=== PATIENT | male | born 1955 | race Caucasian/White ===

== ENCOUNTER → 2018-12-29 | Day surgery (SDC) | payer MEDICARE ==
[~2018-12-29] MED LIST: ALPRAZOLAM2 MG PO; ATORVASTATIN CA40 MG PO; CEFTRIAXONE SOD 1 GM/NS 50 ML 50 ML IV ONE; CYMBALTA60 MG PO; FENTANYL CITRATE/PF 100MCG/2 ML INJ ONE; FINASTERIDE5 MG PO; FUROSEMIDE40 MG PO; GABAPENTIN300 MG PO; HUMULIN 70100 UNIT/1 SC; IBUPROFEN400 MG PO; IPRAT-ALBUT 0.5-3 ML INH; ISOSORBIDE MONO30 MG PO; LACTULOSE10 GM/15 M PO; LEVAQUIN500 MG PO; LIDOCAINE HCL 2% LOCAL INJ 5 ML SDV VIAL INJ ONE; LIDOCAINE JELLY 2% 10ML URO-JET ONE; LISINOPRIL40 MG PO; METOLAZONE10 MG PO; METOPROLOL SUCC50 MG PO; MIDAZOLAM HCL 2 MG/2 ML VIAL ONE; NORCO 10-325 T1 EACH PO; NYAMYC15 GM TOP; PLAVIX75 MG PO; PROPOFOL IV EMULSION 10 MG/ML 20 ML VIAL ONE; TYLENOL # 31 EA PO; ULTRAM 50MG50 MG PO; XARELTO10 MG PO
--- OUTSIDE RECORDS SUMMARY | 2018-12-29 09:09 | XMS REPORT | Clinical Summary ---
Author Author [facility] Organization [facility] Address Unknown Phone Unavailable Support Name Relationship Address Phone JULIANNA MELTON ECON [address] [place] [address] Care Team Providers Care Humanities Coordinator Name Role Phone PCP Unavailable Allergies Comments Active Allergy Reactions Severity Noted Date No Known Allergies 03/06/2008 Medications End Date Status Medication Sig Dispensed Refills Start Date Active PROPOXYPHENE take 1 tablet 50 1 N-ACETAMINOPHEN 100 by oral route 9 MG-650 MG TABIndications: every 4-6 Back pain, Knee pain hours as needed for pain Active ASCENSIA CONTOUR TEST check twice 100 3 STRIPSIndications: Type daily 0 II or unspecified type diabetes mellitus without mention of complication, not stated as uncontrolled Active CIALIS 20 MG take 1 tablet 5 3 TABIndications: Type II (20 mg) by 0 or unspecified type oral route diabetes mellitus without once daily mention of complication, not stated as uncontrolled, HTN (hypertension) Active ALBUTEROL 90 inhale 1 puff 2 6 MCG/ACTUATION AEROSOL by inhalation 0 INHALERIndications: HTN route every (hypertension) 4-6 hours as needed Active HYDROCODONE-ACETAMINOPHEN Take by 20 Tab 0 (VICODIN ES) 7.5-750 mg mouth every 8 1 tabletIndications: Back hours as pain, Type II or needed for unspecified type diabetes Pain. mellitus without mention Patricio of complication, not Adalberto stated as uncontrolled [address], [place] [address] Active tolterodine (DETROL) 2 mg Take 1 Tab by 60 Tab 2 tabletIndications: mouth 2 times 1 Incontinence without daily. sensory awareness Patricio Glover [address], [place] [address] Active glucose blood test strips 100 Each. 100 2 Box 2 (CONTROL TEST) each month [address]: Type II [address] Curry or unspecified type [place] diabetes mellitus without [address] mention of complication, Road not stated as [place], [place] [address] Active LANCETSIndications: Type 2 Boxes. Use 2 Box 3 II or unspecified type as Directed [address] Curry mention of complication, [place] not stated as [address] [place] [address] Active enalapril (VASOTEC) 5 mg Take 1 Tab by 180 Tab 4 tabletIndications: HTN mouth 2 times 1 (hypertension), daily. Medication refill Active metFORMIN (GLUCOPHAGE) Take 1 Tab by 270 Tab 4 850 mg tabletIndications: mouth 3 times 1 Type II or unspecified daily. type diabetes mellitus Patricio without mention of [place] complication, not stated [address] uncontrolled, Road Medication refill [place] [address] Active traMADol (ULTRAM) 50 mg Take 1 Tab by 50 Tab 3 tabletIndications: Back mouth every 8 1 pain hours as needed for Pain. (1 tablet=50 mg) No additional refills until patient seen in office by new PCP. 1-2 po every 8 - 12 hours prn pain. Active insulin NPH - regular, Inject 6 Vial 6 HUMAN, (NOVOLIN 70/30) subcutaneousl 2 100 unit/mL (70-30) y see admin injectionIndications: instructions. Type II or unspecified Inject 90 type diabetes mellitus units SQ in without mention of am and 40 complication, not stated units in as uncontrolled, afternoon Medication refill then 90 units at bedtime Active metoprolol tartrate Take 1 tablet 180 tablet 4 (LOPRESSOR) 25 mg by mouth 2 2 tabletIndications: times daily. Medication refill Active amitriptyline (ELAVIL) Take 1 tablet 90 tablet 3 100 mg tabletIndications: by mouth at 2 Back pain, Insomnia, bedtime. unspecified, Medication refill Active furosemide (LASIX) 40 mg Take 2 120 tablet 6 tabletIndications: HTN tablets by 2 (hypertension), mouth 2 times Medication refill daily. Active Diaper,Brief,Infant-Aamir, by 300 Each 6 Disp (RA ULTRAFITS DIAPER Misc.(Non-Vincent 2 SIZE 3/MED) g; Combo MiscIndications: Route) route. Medication refill, Pull up, Incontinence without issue 300 per sensory awareness month .rarx Active HYDROCODONE-ACETAMINOPHEN Take 1 tablet 30 tablet 0 (NORCO) 7.5-325 mg per by mouth 2 tabletIndications: Back daily as pain, Knee pain needed for Pain. Active DICLOFENAC SODIUM 75 mg Take 1 tablet 60 tablet 2 delayed release by mouth 2 2 tabletIndications: times daily. Medication refill, Osteoarthritis of left knee Active famotidine (PEPCID) 20 mg Take 1 tablet 180 tablet 4 tabletIndications: by mouth 2 2 Dyspepsia and other times daily. specified disorders of Dr. Curry function of stomach, Type Adalberto II or unspecified type [address] [place] [address] mention of complication, [place], not stated as [place] [address] uncontrolled, Medication [phone] refill [phone] Active oxybutynin (DITROPAN XL) Take 1 tablet 90 tablet 3 10 mg extended release by mouth 2 tabletIndications: daily. Medication refill Active potassium chloride Take 1 tablet 30 tablet 4 (KLOR-CON) 20 mEq by mouth 2 extended release daily. tabletIndications: HTN (hypertension), Medication refill Active simvastatin (ZOCOR) 20 mg Take 1 tablet 90 tablet 3 tabletIndications: Pure by mouth at 3 hypercholesterolemia, bedtime. Medication refill Patricio Glover [address] [place] [address] Active simvastatin (ZOCOR) 20 mg TAKE ONE 90 tablet 3 tabletIndications: TABLET BY 3 Medication refill MOUTH EVERY NIGHT AT BEDTIME Active PHARM MONO INS SYR by 100 Syringe 3 1CC/29G 1 mL 29 Misc.(Non-Vincent 4 SyrgIndications: Type II g; Combo or unspecified type Route) route diabetes mellitus without As directed. mention of complication, not stated as uncontrolled, Medication refill Active Problems Problem Noted Date Follow-up examination following completed treatment with high-risk 10/03/2010 medications, not elsewhere classified Colon cancer screening 10/03/2010 Immunization, influenza 10/03/2010 Dyspepsia and other specified disorders of function of stomach 10/03/2010 Wound 10/03/2010 Obesity, unspecified 10/03/2010 OM (otitis media) 04/14/2010 Incontinence without sensory awareness 03/06/2008 Knee pain 01/04/2008 COPD 07/05/2007 HTN (hypertension) 08/16/2006 Type II or unspecified type diabetes mellitus without mention of 08/16/2006 complication, not stated as uncontrolled Back pain 08/16/2006 Pure hypercholesterolemia 08/16/2006 COPD (chronic obstructive pulmonary disease) Encounters Care Team Description Date Type Specialty Davide Mendez MD Takenaka, Katrin Y, MD Chronic pain of left upper extremity (Primary Dx); Chest pain on breathing 12/05/2018 Emergency Emergency Medicine - 12/06/2018 12/05/2018 Travel after 12/28/2017 Immunizations Name Dates Previously Given Next Due Influenza A (H1N1) Vac 10/29/2009 Injection Influenza Vaccine 10/03/2010, 09/17/2009, 09/22/2007, 09/02/2006 Pneumoccoccal 09/22/2007 Family History Medical History Relation Name Comments Heart Father Heart Mother Diabetes Sister Relation Name Status Comments Father Mother Sister Social History Date Tobacco Use Types Packs/Day Years Used Former Smoker Comments: quit 1 yr ago. uses chewing tobacco. Alcohol Use Drinks/Week oz/Week Comments No Sex Assigned at Date Recorded Not on file Industry Job Start Date Occupation Not on file Not on file Not on file Travel End Travel History Travel Start No recent travel history available. Last Filed Vital Signs Time Taken Vital Sign Reading 12/06/2018 9:00 AM GUIDANCE DIRECTOR Blood Pressure 141/78 12/06/2018 9:00 AM GUIDANCE DIRECTOR Pulse 91 12/06/2018 9:00 AM GUIDANCE DIRECTOR Temperature 36.9 C (98.4 F) 12/06/2018 9:00 AM GUIDANCE DIRECTOR Respiratory Rate 18 12/06/2018 9:00 AM GUIDANCE DIRECTOR Oxygen Saturation 97% - Inhaled Oxygen - Concentration 12/06/2018 12:00 AM GUIDANCE DIRECTOR Weight 174.2 kg (384 lb) - Height - 03/17/2012 1:32 PM CDT Body Mass Index 50.66 Plan of Treatment Health Maintenance Due Date Last Done Comments DM Foot Exam (Yearly) 02/16/1974 DM Retinal Exam (Yearly) 02/16/1974 Colorectal Cancer Scrn 09/30/2008 09/30/2007, 09/29/2007, 09/28/2007 Annual (FIT/FOBT) Age 50 to 75 DM HGBA1C (Yearly) 03/02/2013 03/02/2012, 07/20/2011, 04/18/2010, Additional history exists IMM Influenza Seasonal 08/29/2018Aug to January (>/=19 yrs) Procedures Comments Procedure Name Priority Date/Time Associated Diagnosis CONSULT CLINICAL CASE STAT 12/06/2018 MANAGEMENT (RN/SW) 8:26 AM GUIDANCE DIRECTOR DUPLEX DOPPLER LOWER STAT 12/06/2018 EXTREMITY VENOUS, 6:10 AM GUIDANCE DIRECTOR BILATERAL 12 LEAD EKG Routine 12/06/2018 1:48 AM GUIDANCE DIRECTOR TROPONIN I POC Routine 12/06/2018 1:[address] CHEST PE PROTOCOL STAT 12/06/2018 Chest pain on breathing 12:37 AM GUIDANCE DIRECTOR VBG POC Routine 12/05/2018 8:53 PM GUIDANCE DIRECTOR BMP POC Routine 12/05/2018 8:52 PM GUIDANCE DIRECTOR TROPONIN I POC Routine 12/05/2018 8:49 PM GUIDANCE DIRECTOR B NATRIURETIC PEPT STAT 12/05/2018 8:30 PM GUIDANCE DIRECTOR CBC/DIFF STAT 12/05/2018 8:30 PM GUIDANCE DIRECTOR XRAY CHEST 2 VIEWS STAT 12/05/2018 Chest pain on breathing 8:29 PM GUIDANCE DIRECTOR 12 LEAD EKG Routine 12/05/2018 6:34 PM GUIDANCE DIRECTOR after 12/28/2017 Results * DUPLEX DOPPLER LOWER EXTREMITY VENOUS, BILATERAL (12/06/2018 6:10 AM GUIDANCE DIRECTOR) Impressions Performed At IMPRESSION: [facility] No deep venous thrombosis (DVT) in the visualized portions of bilateral lower extremities. This [facility] radiology report is a preliminary resident dictation until finalized by an attending.Changes to this preliminary report may occur in an additional preliminary or finalized version. Resident: Nyla Esteban have reviewed the study and agree with the findings in this report. Signed By: Maximiliano Curran MD, 12/06/2018 6:22 AM Narrative Performed At EXAM: US BILATERAL LOWER EXTREMITY VENOUS DOPPLER SMS DATE: 12/06/2018 6:11 AM INDICATION: swelling and pain. ADDITIONAL INFORMATION: None. COMPARISON: None. TECHNIQUE: Multiplanar grayscale, color Doppler and spectral Doppler ultrasound of the bilateral lower extremity veins. FINDINGS: Right Thigh Veins: Common Femoral: Patent. Femoral (SFV): Patent. Popliteal: Patent. Proximal Greater Saphenous: Patent. Proximal Deep Femoral Veins: Patent. Left Thigh Veins: Common Femoral: Patent. Femoral (SFV): Patent. Popliteal: Patent. Proximal Greater Saphenous: Patent. Proximal Deep Femoral Veins: Patent. Other: None. Procedure Note Interface, Rad/Mammog In - 12/06/2018 6:27 AM GUIDANCE DIRECTOR EXAM: US BILATERAL LOWER EXTREMITY VENOUS DOPPLER DATE: 12/06/2018 6:11 AM INDICATION: swelling and pain. ADDITIONAL INFORMATION: None. COMPARISON: None. TECHNIQUE: Multiplanar grayscale, color Doppler and spectral Doppler ultrasound of the bilateral lower extremity veins. FINDINGS: Right Thigh Veins: Common Femoral: Patent. Femoral (SFV): Patent. Popliteal: Patent. Proximal Greater Saphenous: Patent. Proximal Deep Femoral Veins: Patent. Left Thigh Veins: Common Femoral: Patent. Femoral (SFV): Patent. Popliteal: Patent. Proximal Greater Saphenous: Patent. Proximal Deep Femoral Veins: Patent. Other: None. IMPRESSION IMPRESSION: No deep venous thrombosis (DVT) in the visualized portions of bilateral lower extremities. This [facility] radiology report is a preliminary resident dictation until finalized by an attending. Changes to this preliminary report may occur in an additional preliminary or finalized version. Resident: Nyla Esteban have reviewed the study and agree with the findings in this report. Signed By: Maximiliano Curran MD, 12/06/2018 6:22 AM Performing Organization Address City/State/Zipcode Phone Number SMS * 12 LEAD EKG (12/06/2018 1:48 AM GUIDANCE DIRECTOR) 12 LEAD EKG FOR SMS [facility] Shankar Lindsay [facility] Test Date:2018-12-06 Pat Name: ADAN MELTON Department: [id number] Room: Gender: M Choir Accompanist: :[id number] Requested By: HEATHER MUNOZ Order Number: [id number] Reading MD: Claus Aviles Measurements Intervals [place] Rate: 81 P:78 NV: 238 QRS: 38 QRSD: 96 T:83 QT: 373 QTc:434 Interpretive Statements SINUS RHYTHM WITH FIRST DEGREE AV BLOCK WITH OCCASIONAL VENTRICULAR PREMATURE COMPLEXES LOW QRS VOLTAGE IN PRECORDIAL LEADS [QRS DEFLECTION < 1.0 mV IN CHEST LEADS] NONSPECIFIC ST/T CHANGE POOR R WAVE PROGRESSION Electronically Signed On 12-07-2018 7:13:50 GUIDANCE DIRECTOR by Claus Aviles Performing Organization Address City/State/[facility] Phone Number SMS * TROPONIN I POC (12/06/2018 1:44 AM GUIDANCE DIRECTOR) Only the most recent of 2 results within the time period is included. Troponin POC 0.01Comment: Physician 0.00 - 0.08 ng/mL [facility] Notified MAIN-STATION 1 Performing Organization Address City/State/[facility] Phone Number MISYS [facility] MAIN-STATION 1 * CT CHEST PE PROTOCOL (12/06/2018 12:37 AM GUIDANCE DIRECTOR) Impressions Performed At IMPRESSION: [facility] 1.Limited evaluation due to poor opacification of the pulmonary artery. Within this limitation, no large pulmonary embolus identified centrally or in the lobar level. 2.Subtle groundglass opacity in the medial portion of the right upper lobe may represent early infection versus subsegmental atelectasis. 3. Mildly dilated pulmonary trunk suggests pulmonary hypertension. 4.Incidentally noted exophytic, intermediate density left renal cyst. This can be further evaluated with nonemergent renal ultrasound if clinically indicated. 5.Incidentally noted hypodensity in the left thyroid measuring up to 1.4 cm. No further follow-up is needed per ACR guidelines. 6.Small pleural calcifications identified bilaterally may suggest asbestos related pleural disease. This [facility] radiology report is a preliminary resident dictation until finalized by an attending.Changes to this preliminary report may occur in an additional preliminary or finalized version. Resident: Nyla Esteban have reviewed the study and agree with the findings in this report. Signed By: Maximiliano Curran MD, 12/06/2018 1:00 AM Narrative Performed At EXAM: CTA CHEST WITH CONTRAST SMS DATE: 12/06/2018 12:39 AM INDICATION: SOB, chest pain. Chest pain on breathing COMPARISON: None TECHNIQUE: Volumetric CT of the chest is acquired during pulmonary arterial phase following intravenous administration of contrast. Axial, sagittal, coronal, and oblique MIP reconstructions are created at the acquisition workstation. IV contrast: 65 mL Omnipaque 350 DLP: 843.6 mGy-cm FINDINGS: Lines and tubes: None. Lower neck: Incidentally noted hypodensity in the left thyroid measuring up to 1.4 cm. Axilla: Clear. Airway: Patent. Lungs and pleura:Small pleural calcifications are noted. Subtle, patchy groundglass opacity in the medial portion of the right upper lobe. Small calcified granuloma in the left lower lobe. Mediastinum, judah and intrathoracic lymph nodes: Normal. Heart, pericardium and great vessels: Pulmonary emboli: None identified within the limitation of the study. Pulmonary trunk: 3.3 cm. Ascending aorta: 3.4 cm. Heart: Normal. No right heart strain. Pericardium: No pericardial fluid. Upper abdomen: Intermediate density, mildly exophytic left renal cyst. Gallbladder is nonvisualized. May be surgically absent. Bones: No acute abnormality. Incidentally noted hemangioma in T3 vertebral body. Age-related degenerative changes. Soft tissues: Normal. Procedure Note Interface, Rad/Mammog In - 12/06/2018 1:05 AM GUIDANCE DIRECTOR EXAM: CTA CHEST WITH CONTRAST DATE: 12/06/2018 12:39 AM INDICATION: SOB, chest pain. Chest pain on breathing COMPARISON: None TECHNIQUE: Volumetric CT of the chest is acquired during pulmonary arterial phase following intravenous administration of contrast. Axial, sagittal, coronal, and oblique MIP reconstructions are created at the acquisition workstation. IV contrast: 65 mL Omnipaque 350 DLP: 843.6 mGy-cm FINDINGS: Lines and tubes: None. Lower neck: Incidentally noted hypodensity in the left thyroid measuring up to 1.4 cm. Axilla: Clear. Airway: Patent. Lungs and pleura: Small pleural calcifications are noted. Subtle, patchy groundglass opacity in the medial portion of the right upper lobe. Small calcified granuloma in the left lower lobe. Mediastinum, judah and intrathoracic lymph nodes: Normal. Heart, pericardium and great vessels: Pulmonary emboli: None identified within the limitation of the study. Pulmonary trunk: 3.3 cm. Ascending aorta: 3.4 cm. Heart: Normal. No right heart strain. Pericardium: No pericardial fluid. Upper abdomen: Intermediate density, mildly exophytic left renal cyst. Gallbladder is nonvisualized. May be surgically absent. Bones: No acute abnormality. Incidentally noted hemangioma in T3 vertebral body. Age-related degenerative changes. Soft tissues: Normal. IMPRESSION IMPRESSION: 1. Limited evaluation due to poor opacification of the pulmonary artery. Within this limitation, no large pulmonary embolus identified centrally or in the lobar level. 2. Subtle groundglass opacity in the medial portion of the right upper lobe may represent early infection versus subsegmental atelectasis. 3. Mildly dilated pulmonary trunk suggests pulmonary hypertension. 4. Incidentally noted exophytic, intermediate density left renal cyst. This can be further evaluated with nonemergent renal ultrasound if clinically indicated. 5. Incidentally noted hypodensity in the left thyroid measuring up to 1.4 cm. No further follow-up is needed per ACR guidelines. 6. Small pleural calcifications identified bilaterally may suggest asbestos related pleural disease. This [facility] radiology report is a preliminary resident dictation until finalized by an attending. Changes to this preliminary report may occur in an additional preliminary or finalized version. Resident: Nyla Esteban have reviewed the study and agree with the findings in this report. Signed By: Maximiliano Curran MD, 12/06/2018 1:00 AM Performing Organization Address City/State/Zipcode Phone Number SMS * VBG POC (12/05/2018 8:53 PM GUIDANCE DIRECTOR) pH, John POC 7.32 (L)Comment: Physician 7.33 - 7.43 [facility] Notified MAIN-STATION 1 pCO2, John POC 52.1 (H) 38.0 - 50.0 mm Hg [facility] MAIN-STATION 1 pO2, John POC 45 (L) 50 - 75 mm Hg [facility] MAIN-STATION 1 Base Excess, 0 mmol/L [facility] John POC MAIN-STATION 1 HCO3, John POC 26.9 (H) 22.0 - 26.0 mmol/L [facility] MAIN-STATION 1 % Sat, John POC 76 60 - 85 % [facility] MAIN-STATION 1 Lactic Acid, 1.43 0.4 - 2.0 mmol/L [facility] John POC MAIN-STATION 1 Sample Type John [facility] MAIN-STATION 1 TCO2, JOHN POC 28 21 - 32 mmol/L [facility] MAIN-STATION 1 Performing Organization Address [facility] Phone Number SUZETTEYS [facility] MAIN-STATION 1 * BMP POC (12/05/2018 8:52 PM GUIDANCE DIRECTOR) CO2 POC 27Comment: Physician Notified 21 - 32 mmol/L [facility] MAIN-STATION 1 Chloride POC 104 98 - 107 mmol/L [facility] MAIN-STATION 1 Potassium POC 3.9 3.50 - 5.10 mmol/L [facility] MAIN-STATION 1 Sodium POC 142 136 - 145 mmol/L [facility] MAIN-STATION 1 Glucose POC 382 (H) 74 - 106 mg/dL [facility] MAIN-STATION 1 Urea Nitrogen 43 (H) 7 - 18 mg/dL [facility] POC MAIN-STATION 1 Creatinine POC 1.4 (H) 0.6 - 1.3 mg/dL [facility] MAIN-STATION 1 Calcium Ionized 1.19 1.15 - 1.29 mmol/L [facility] POC MAIN-STATION 1 Hemoglobin POC 11.6 (L) 14.0 - 18.0 g/dL [facility] MAIN-STATION 1 Hematocrit POC 34.0 (L) 40.0 - 54.0 % [facility] MAIN-STATION 1 GFR, Estimated 51 mL/min/1.73 m2 [facility] MAIN-STATION 1 GFR, Estim, >60 mL/min/1.73 m2 [facility] Afr-Am MAIN-STATION 1 Performing Organization Address [facility] Centercode Phone Number MISMICHELLE [facility] MAIN-STATION 1 * B NATRIURETIC PEPT (12/05/2018 8:30 PM GUIDANCE DIRECTOR) B Natriuretic 23 <101 pg/mL BT MAIN-STATION Pept 1 Specimen Blood Performing Organization Address [facility] Centercode Phone Number MISYS BT MAIN-STATION 1 * CBC/DIFF (12/05/2018 8:30 PM GUIDANCE DIRECTOR) WBC 9.6 4.5 - 12.0 K/uL [facility] MAIN-STATION 2 RBC 4.08 (L) 4.60 - 6.20 M/uL [facility] MAIN-STATION 2 Hemoglobin 10.8 (L) 14.0 - 18.0 g/dL [facility] MAIN-STATION 2 Hematocrit 36.3 (L) 40.0 - 54.0 % [facility] MAIN-STATION 2 MCV 89 82 - 92 fL [facility] MAIN-STATION 2 MCH 26.5 (L) 27.0 - 31.0 pg [facility] MAIN-STATION 2 MCHC 29.8 (L) 32.0 - 36.0 g/dL [facility] MAIN-STATION 2 RDW 46.6 (H) 35.1 - 43.9 fL [facility] MAIN-STATION 2 Platelet 272 150 - 400 K/uL [facility] MAIN-STATION 2 Mean Platelet 10.0 9.4 - 12.4 fL [facility] Volume MAIN-STATION 2 Percent NRBC 0.0 [facility] MAIN-STATION 2 Absolute NRBC 0.00 [facility] MAIN-STATION 2 Neutrophil 69.5 (H) 34.0 - 67.9 % [facility] MAIN-STATION 2 Lymphocyte 13.0 (L) 21.8 - 50.0 % [facility] MAIN-STATION 2 Monocyte 8.5 5.3 - 12.0 % [facility] MAIN-STATION 2 Eosinophil 7.1 (H) 0.8 - 5.0 % [facility] MAIN-STATION 2 Basophil 0.5 0.2 - 1.2 % [facility] MAIN-STATION 2 Pct Immat Gran 1.4 (H) 0.0 - 0.5 [facility] MAIN-STATION 2 Neutrophil, Abs 6.64 (H) 1.78 - 5.36 K/uL [facility] MAIN-STATION 2 Lymphocyte, Abs 1.24 (L) 1.32 - 3.57 K/uL [facility] MAIN-STATION 2 Monocyte, Abs 0.81 0.30 - 0.82 K/uL [facility] MAIN-STATION 2 Eosinophil, Abs 0.68 (H) 0.04 - 0.54 K/uL [facility] MAIN-STATION 2 Basophil, Abs 0.05 0.01 - 0.08 K/uL [facility] MAIN-STATION 2 Absol Immat 0.13 (H) 0.00 - 0.03 K/uL [facility] Gran MAIN-STATION 2 Specimen Blood Performing Organization Address City/State/Zipcode Phone Number MISYS [facility] MAIN-STATION 2 * XRAY CHEST 2 VIEWS (12/05/2018 8:29 PM GUIDANCE DIRECTOR) Impressions Performed At IMPRESSION: SMS Mild cardiomegaly and pulmonary vascular congestion This EPIC radiology report is a preliminary resident dictation until finalized by an attending.Changes to this preliminary report may occur in an additional preliminary or finalized version. I have reviewed the study and agree with the findings in this report. Signed By: Sheila Hawkins MD, 12/05/2018 8:36 PM Narrative Performed At EXAM: XR CHEST 2 VIEWS [facility] DATE: 12/05/2018 8:36 PM INDICATION: chest pain. Chest pain on breathing COMPARISON: None TECHNIQUE: PA and lateral chest radiographs FINDINGS: Lines, tubes and hardware: None. Lungs and pleura: Bibasilar subsegmental atelectasis. The costophrenic sulci are sharp, without pleural effusion. Heart and mediastinum: The heart size is normal. The mediastinal contours are normal. Pulmonary venous hypertension is present, without overt pulmonary edema. Bones: No acute bony abnormality. Procedure Note Interface, Rad/Mammog In - 12/05/2018 8:41 PM GUIDANCE DIRECTOR EXAM: XR CHEST 2 VIEWS DATE: 12/05/2018 8:36 PM INDICATION: chest pain. Chest pain on breathing COMPARISON: None TECHNIQUE: PA and lateral chest radiographs FINDINGS: Lines, tubes and hardware: None. Lungs and pleura: Bibasilar subsegmental atelectasis. The costophrenic sulci are sharp, without pleural effusion. Heart and mediastinum: The heart size is normal. The mediastinal contours are normal. Pulmonary venous hypertension is present, without overt pulmonary edema. Bones: No acute bony abnormality. IMPRESSION IMPRESSION: Mild cardiomegaly and pulmonary vascular congestion This [facility] radiology report is a preliminary resident dictation until finalized by an attending. Changes to this preliminary report may occur in an additional preliminary or finalized version. I have reviewed the study and agree with the findings in this report. Signed By: Sheila Hawkins MD, 12/05/2018 8:36 PM Performing Organization Address City/State/Zipcode Phone Number SMS * 12 LEAD EKG (12/05/2018 6:34 PM GUIDANCE DIRECTOR) [facility] Date:2018-12-05 Pat Name: ADAN MELTON Department: [id number] Room: Gender: M Choir Accompanist: :[id number] 02-16 Requested By: WALDO WESTON Order Number: [id number] Reading MD: Claus Aviles Measurements Intervals [place] Rate: 83 P: NV: 0 QRS: 26 QRSD: 90 T:70 QT: 360 QTc:425 Interpretive Statements SINUS RHYTHM LOW QRS VOLTAGE IN PRECORDIAL LEADS NONSPECIFIC ST/T CHANGE POOR R WAVE PROGRESSION Electronically Signed On 12-06-2018 9:13:06 GUIDANCE DIRECTOR by Claus Aviles Performing Organization Address City/State/Zipcode Phone Number SMS after 12/28/2017 Insurance Type Payer Benefit Subscriber ID Effective Phone Address Plan / Dates Group [facility] SELF-PAY [facility] xxxxxxxxx 2018-P [phone] [address] [place] [address]
--- OUTSIDE RECORDS SUMMARY | 2018-12-29 09:09 | XMS REPORT ---
Author [facility] Address Unknown Phone Unavailable Care Team Providers Care Pattern Finisher Name Role Phone Unavailable Unavailable Payers Payer Name Policy Type Policy Number Effective Date Expiration Date Problems This patient has no known problems. Allergies, Adverse Reactions, Alerts Allergy Name Allergy Type Status Severity Reaction(s) Onset Date Inactive Date Treating Clinician Comments hydromorphone DA Active MD 2018-12-12 00:00:00 hydromorphone DA Active MD 2017-12-01 00:00:00 Medications This patient has no known medications. Encounters Start Date/Time End Date/Time Encounter Type Admission Type Attending [facility] Care Department Encounter ID 2018-12-06 05:09:51 2018-12-06 05:09:51 Emergency [facility] [id number] 2018-12-06 00:23:40 2018-12-06 00:23:40 Emergency [facility] [id number] 2018-12-06 00:00:00 2018-12-06 00:00:00 Emergency [facility] [id number] 2018-12-05 20:06:10 2018-12-05 20:06:10 Emergency [facility] [id number] 2018-12-05 19:11:34 2018-12-05 19:11:34 Emergency [facility] [id number] 2018-12-05 00:00:00 2018-12-05 00:00:00 Emergency [facility] [id number]
[2018-12-29 10:18] LABS: CREATININE, SERUM 1.39 mg/dL (0.72-1.25)
[2018-12-29 11:40] VITALS: BP 101/72
--- NOTE | 2019-01-12 12:02 | Operative Report ---
DATE OF PROCEDURE: December 29, 2018 PREOPERATIVE DIAGNOSIS: Incontinence. POSTOPERATIVE DIAGNOSIS: Incontinence. PROCEDURE PERFORMED: Cystoscopy. ANESTHESIA: MAC. ESTIMATED BLOOD LOSS: Minimal. INDICATIONS: Mr. Adan Lawson is a 63-year-old obese man with a long history of urinary incontinence which has failed conservative management. He now presents for potential diagnosis of this problem. PROCEDURE IN DETAIL: The patient was brought into the operating room, placed in supine position and after initiation of general anesthesia was prepped and draped in the usual sterile fashion. Flexible cystoscopy was performed. The anterior and posterior urethra were noted to be normal. The bladder neck was noted to be open at rest. The prostate revealed evidence of prior resection. There was no obvious obstruction. The bladder was entered without difficulty. The ureteral orifices were in their normal anatomical position and produced clear efflux. The bladder mucosa was noted to be mildly trabeculated but without any evidence of mucosal lesions or any recent cystitis. The cystoscope and sheath were removed and a 16-Lao Waggoner was placed to gravity drainage at the end of the procedure. He was transferred to a bed and taken to the postanesthesia care unit in good condition. Of note, the instrument count was correct at the conclusion of the case. Job#: [id number] AARTI
== END | disposition home or self-care (01) ==
LOC: OR 09:05
PROVIDERS: ATTEND Urology
DX: R32 Unspecified urinary incontinence (principal); N32.89 Other specified disorders of bladder; N32.0 Bladder-neck obstruction; Z87.442 Personal history of urinary calculi; I49.3 Ventricular premature depolarization; J44.9 Chronic obstructive pulmonary disease, unspecified; G47.33 Obstructive sleep apnea (adult) (pediatric); I25.10 Atherosclerotic heart disease of native coronary artery without angina pectoris; I25.2 Old myocardial infarction; I11.0 Hypertensive heart disease with heart failure; I50.9 Heart failure, unspecified; E66.01 Morbid (severe) obesity due to excess calories; E11.9 Type 2 diabetes mellitus without complications; K58.9 Irritable bowel syndrome, unspecified; F32.9 Major depressive disorder, single episode, unspecified; F41.9 Anxiety disorder, unspecified; Z88.6 Allergy status to analgesic agent; Z79.02 Long term (current) use of antithrombotics/antiplatelets; Z79.4 Long term (current) use of insulin; Z86.718 Personal history of other venous thrombosis and embolism; Z95.5 Presence of coronary angioplasty implant and graft; Z87.891 Personal history of nicotine dependence
CPT/HCPCS: 36415; 52000; 80048; 82948; 93005; J0696; J2001; J2250; J2704